=== PATIENT | male | born 1955 | race Caucasian/White ===

== ENCOUNTER 2016-06-27 07:10 | Inpatient (IN) | payer BC, OTHER ==
[~2016-06-27] VITALS: Ht 170.2 cm; Wt 68.5 kg
--- NOTE | 2016-06-27 11:38 | NUR ---
PRE-ASSESSMENT: PRE-ASSESSMENT DONE IN INTAKE BP 137/92 P 86 T 98.7 R 18 99%. HE DENIES ALLERGIES. HE DENIES SEIZURES. MEDICATION COLLECTED. HE REPORTS BPH AND THE ONLY MED HE TAKES IS FLOMAX 0.4 MG PO Q BEDTIME. HE IS A/O X 4. HE IS AMBULATORY.
[2016-06-27] MEDS ORDERED: AMOX-430 PO (11:51)
[2016-06-27] MEDS ORDERED: RANI150T12 PO (11:51)
[2016-06-27] MEDS ORDERED: OXYM30SP NS (11:51)
[2016-06-27] MEDS ORDERED: PROP10TA10 PO (11:51)
[2016-06-27] MEDS ORDERED: TAMS-3 PO (11:51)
[2016-06-27] MEDS ORDERED: SENN-108 PO (11:51)
[2016-06-27 12:00] VITALS: BP 137/92
--- NOTE | 2016-06-27 12:40 | NUR ---
ADMISSION: A 61 Y.O. 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 HE IS A/O X 4 AND AMBULATORY. HE DENIES S/I AND H/I. SKIN WARM , DRY AND INTACT. BENIGN RAISED AREA ON BACK THAT IS NOT OPEN AND HE STATES IT IS A CYST THAT IS BENIGN. LUNG SOUNDS CLEAR THROUGHOUT. HE REPORTS USING XANAX AND KLONOPIN DAILY PO (ALTERNATES BETWEEN THE TWO.) 0.5 -1 MG DAILY FOR 7 YEARS. LAST USED XANAX 1 MG TODAY BEFORE ARRIVING AT OUR FACILITY. 300-500 MG OF OXYCONTIN DAILY FOR 7 YEARS PO. LAST USED 06/26/16 IN AM. HE STATES HIS CHILDREN ARE DISGUSTED AND HIS USE IS ALSO AFFECTING HIS RELATIONSHIP WITH HIS . HE STATES HE CANNOT STOP USING ON HIS OWN AND NEEDS HELP. PT REPORTS BEING IN A 30 DAY TREATMENT IN 1987 AT [facility] IN [place]. HE STATES HE WAS CLEAN FOR 14 YEARS AND RELAPSED 7 YEARS AGO. HE REPORTS NKA. HE REPORTS BPH AND TAKES FLOMAX AT BEDTIME. HE BROUGHT MEDS IN BUT STATES HE ONLY TAKES THE FLOMAX. HE DENIES A SEIZURE HISTORY. HE DENIES HAVING A PCP. HE LIVES WITH HIS IN [facility] AND HIS KIDS LIVE WITH HIM [employer]. COWS 6 CIWA 2 ON ADMISSION. HE REPORTS SOME BODY ACHES , ANXIETY AND CHILLS ON AND OFF. ENCOURAGED INCREASED FLUIDS. HE IS ON A KOSHER DIET AND AVOIDS MEAT. ORIENTED PT TO STAFF AND UNIT. INFORMED PT THAT NURSING IS AVAILABLE /. WILL CONTINUE TO PROVIDE SAFE AND SUPPORTIVE ENVIRONMENT.
[2016-06-27 12:57] LABS: *AMPHETAMINE, URINE NEGATIVE (NEGATIVE); *BARBITURATE, URINE NEGATIVE (NEGATIVE); *CANNABINOID, URINE NEGATIVE (NEGATIVE); *COCCAINE, URINE NEGATIVE (NEGATIVE); *OPIATE, URINE NEGATIVE (NEGATIVE); *PHENCYCLIDINE SCREEN,URINE NEGATIVE (NEGATIVE)
[2016-06-27] MEDS ORDERED: LORAZEPAM 2 MG/1 ML VIAL IM PRN (13:00)
[2016-06-27] MEDS ORDERED: BUPRENORPHINE HCL 2 MG TAB.SUBL SL PRN (13:00)
[2016-06-27] MEDS ORDERED: HYDROXYZINE PAMOATE 25 MG CAPSULE PO PRN (13:00)
[2016-06-27] MEDS ORDERED: MIRALAX 17 GM POWD.PACK PO PRN (13:00)
[2016-06-27] MEDS ORDERED: METHOCARBAMOL 750 MG TABLET PO PRN (13:00)
[2016-06-27] MEDS ORDERED: diphenhydrAMINE 50 MG CAPSULE PO PRN (13:00)
[2016-06-27] MEDS ORDERED: DIAZEPAM 10 MG TABLET PO PRN ×2 (13:00)
[2016-06-27] MEDS ORDERED: ONDANSETRON ODT 4 MG TAB.RAPDIS SL PRN (13:00)
[2016-06-27] MEDS ORDERED: DICYCLOMINE HCL 20 MG TABLET PO PRN (13:00)
[2016-06-27] MEDS ORDERED: MAGNESIUM HYDROXIDE 30 ML LIQUID UDC PO PRN (13:00)
[2016-06-27] MEDS ORDERED: MAG HYDROX/AL HYDROX/SIMETH 30 ML LIQUID UDC PO PRN (13:00)
[2016-06-27] MEDS ORDERED: ACETAMINOPHEN 325 MG TABLET PO PRN (13:00)
[2016-06-27] MEDS ORDERED: LOPERAMIDE HCL 2 MG CAPSULE PO PRN ×2 (13:00)
[2016-06-27] MEDS ORDERED: ONDANSETRON 4 MG/2 ML VIAL IM PRN (13:00)
--- NOTE | 2016-06-27 13:15 | NUR ---
PRN VALIUM 5 MG ADMINISTERED FOR S/S OF W/D WHICH INCLUDE ANXIETY,RESTLESSNESS AND SWEATS. CIWA 6. WILL MONITOR EFFECTIVENESS.
[2016-06-27] MEDS: DIAZEPAM 5 MG TABLET PO PRN (13:19)
--- NOTE | 2016-06-27 13:45 | NUR ---
PRN VALIUM EFFECTIVE. CIWA 2.
[2016-06-27 16:00] VITALS: BP 162/82
[2016-06-27] MEDS: IBUPROFEN 600 MG TABLET PO PRN ×2 (16:43→19:37)
--- NOTE | 2016-06-27 16:45 | NUR ---
PRN MOTRIN GIVEN FOR REPORTED H/A 08/11 WILL MONITOR EFFECTIVENESS.
[2016-06-27] MEDS ORDERED: PATIENT MAY USE OWN MED- MD OK PO SCH ×2 (17:00→21:00)
[2016-06-27 17:04] LABS: BASOPHILS % (AUTO) 0.4 % (0.0-2.0); EOSINOPHILS % (AUTO) 0.7 % (0.0-7.0); HEMATOCRIT 39.7 % (36.7-47.1); HEMOGLOBIN 12.8 g/dL (12.5-16.3); LYMPHOCYTES # (AUTO) 0.9 K/uL (20.0-40.0); MEAN CORPUSCULAR HEMOGLOBIN 24.2 uug (23.8-33.4); MEAN CORPUSCULAR HGB CONC 32 g/dL (32.5-36.3); MEAN CORPUSCULAR VOLUME 74.9 fL (73.0-96.2); MONOCYTES # (AUTO) 0.3 K/uL (2.0-10.0); MONOCYTES % (AUTO) 3.6 % (0.0-11.0); NEUTROPHILS # (AUTO) 5.9 K/uL (1.8-8.9); NEUTROPHILS % (AUTO) 82.3 % (38.5-71.5); PLATELET COUNT (AUTO) 222 K/uL (152-348); RED CELL DISTRIBUTION WIDTH 15.8 % (12.1-16.2); WHITE BLOOD COUNT (AUTO) 7.1 K/uL (3.6-10.2)
[2016-06-27 17:14] LABS: ETHANOL < 3 MG/DL (0-0)
[2016-06-27 17:15] LABS: HIV-1 p24 ANTIGEN NON REACTIVE (NONREACTIVE); HIV-1/2 ANTIBODY NON REACTIVE (NONREACTIVE)
--- NOTE | 2016-06-27 17:15 | NUR ---
PRN MOTRIN EFFECTIVE. PT STATES H/A 04/13.
[2016-06-27 17:17] LABS: ALANINE AMINOTRANSFERASE 38 U/L (16-63); ALBUMIN 3.6 g/dL (3.4-5.0); ALKALINE PHOSPHATASE 54 U/L (50-136); ASPARTATE AMINOTRANSFERASE 23 U/L (15-37); BILIRUBIN,TOTAL 0.3 mg/dL (0.2-1.0); CALCIUM 9.4 mg/dL (8.5-10.1); CARBON DIOXIDE 28 mmol/L (21-32); CHLORIDE 105 mmol/L (98-107); CREATININE 0.8 mg/dL (0.6-1.3); GFR 99 mL/min (>60); GLUCOSE 104 mg/dL (74-106); POTASSIUM 4.4 mmol/L (3.5-5.1); SODIUM SERUM 143 mmol/L (136-145); UREA NITROGEN, BLOOD 10 mg/dL (7-18)
[2016-06-27 17:37] LABS: BAND % (MANUAL) 2 % (0-10); HYPOCHROMASIA 1+; LYMPHOCYTES % (MANUAL) 14 % (20-40); MONOCYTES % (MANUAL) 4 % (2-10); NEUTROPHILS % (MANUAL) 80 % (42-75); OVALOCYTES FEW; PLATELET ESTIMATE ADEQUATE
--- NOTE | 2016-06-27 18:02 | NUR ---
PT REPORTS SEVERE BODY ACHES,CHILLS,SWEATS AND RESTLESSNESS. COWS 14. PRN SUBUTEX GIVEN AT 1800. WILL MONITOR EFFECTIVENESS OF MEDICATION.
--- NOTE | 2016-06-27 18:30 | NUR ---
PRN SUBUTEX EFFECTIVE. COWS 6. WILL CONTINUE TO MONITOR.
--- NOTE | 2016-06-27 18:49 | NUR ---
END OF SHIFT: PT ADMITTED TODAY FOR BZO/OPI DEPENDENCE. HE WAS FEELING SOME S/S OF W/D WHICH INCLUDED ANXIETY AND RESTLESSNESS AND H/A. PRN VALIUM 5 MG PO AND MOTRIN 600 MG PO GIVEN AND EFFECTIVE. AT 1800 PTS' COWS SCORE BECAME 14 WITH SWEATS,CHILLS,ANXIETY RUNNY NOSE ANXIETY AND SEVERE BODY ACHES. PRN SUBUTEX GIVEN AND EFFECTIVE LAST COWS 6. ENCOURAGED INCREASED FLUIDS AND REST. WILL PASS REPORT TO ONCOMING NIGHT NURSE.
--- NOTE | 2016-06-27 19:38 | NUR ---
PRN Motrin: Patient complains of back pain and generalized muscle aches. Patient rates pain 9/10. Administered PRN Motrin as ordered. Will continue to monitor.
[2016-06-27 20:00] VITALS: BP 158/102
--- NOTE | 2016-06-27 20:00 | NUR ---
Start of Shift Note: Report received from day shift nurse. Pt is a 61 yo male admitted on 06/27/16 for medically-supervised withdrawal from benzodiazepines and opiates. Pt reports using 300-500mg OxyContin, 0.5-1mg of Xanax and Klonopin daily for 7 years. Pt is to start 5-day Valium and Subutex tapers tonight. Last day shift COWS=6, CIWA=4. Pt is on a kosher vegetarian diet. Pt reports NKDA/NKFA. Pt reports med hx: BPH and GERD. Pt received in room, and reports tremor, anxiety, agitation, headache, and pain. Bed is in low position and locked, side rails up x2, call light within reach. Will continue to monitor.
[2016-06-27] MEDS: TAMSULOSIN HCL 0.4 MG CAP.SR.24H PO SCH (20:24)
[2016-06-27] MEDS: FAMOTIDINE 20 MG TABLET PO SCH (20:24)
--- NOTE | 2016-06-27 20:24 | NUR ---
PRN Benadryl: Patient complains of inability to sleep. Non-pharmacological measures not effective. Administered PRN Benadryl 50mg PO as ordered. Will continue to monitor.
[2016-06-27] MEDS: CLONIDINE HCL 0.1 MG TABLET PO PRN (20:30)
--- NOTE | 2016-06-27 20:30 | NUR ---
PRN Clonidine: Patient complains of increased anxiety. BP elevated at 158/102. Administered PRN Clonidine 0.1mg PO as ordered. Will continue to monitor.
--- NOTE | 2016-06-27 20:40 | NUR ---
PRN Motrin Reassessment: Pt states that he has reduction in pain from 9/10 to 5/10 and is now tolerable. PRN Motrin effective. Additional pain relief to be treated with scheduled Subutex at 21:00. Will continue to monitor.
[2016-06-27] MEDS ORDERED: DIAZEPAM 10 MG TABLET PO SCH (21:00)
[2016-06-27] MEDS ORDERED: BUPRENORPHINE HCL 2 MG TAB.SUBL SL SCH (21:00)
--- NOTE | 2016-06-27 21:25 | NUR ---
PRN Benadryl Reassessment: Patient reports mild drowsiness with PRN Benadryl. PRN Benadryl not effective. Will continue to monitor and administer PRN medication if patient is unable to sleep after additional non-pharmacological interventions.
--- NOTE | 2016-06-27 21:30 | NUR ---
PRN Clonidine Reassessment: Patient reports mild decrease in anxiety. BP decreased from 158/102 to 141/82. PRN Clonidine effective. Will continue to monitor.
--- NOTE | 2016-06-27 23:35 | NUR ---
PRN Vistaril: Patient complains of increased anxiety that prevents sleep. Non-pharmacological measures not effective. Administered PRN Vistaril as ordered. Will continue to monitor.
[2016-06-28] VITALS (7 sets, daily range): BP systolic 128–158; BP diastolic 69–95
[2016-06-28] MEDS: DIAZEPAM 5 MG TABLET PO PRN (01:00)
--- NOTE | 2016-06-28 01:00 | NUR ---
PRN's Valium, Robaxin, Tylenol and PRN Vistaril Reassessment: Patient noted with tremor, diaphoresis. Patient reports anxiety and agitation not relieved by PRN Vistaril. Administered PRN Valium 5mg PO as ordered according to CIWA score. Will reassess in one hour. Patient complains of myalgia and pain in lower back. Patient rates pain 9/10. Non-pharmacological measures not effective. Administered PRN Robaxin and PRN Tylenol as ordered. Will continue to monitor.
--- NOTE | 2016-06-28 02:02 | NUR ---
PRN Reassessment: Patient reports relief of myalgia and pain decreased from 9/10 to 3/10. PRN Robaxin and PRN Tylenol effective. Patient reports decrease of anxiety and agitation. CIWA decreased from 9 to 3 after PRN Valium 5mg administration. PRN Valium effective. Will continue to monitor.
[2016-06-28] MEDS: CLONIDINE HCL 0.1 MG TABLET PO PRN (04:00)
--- NOTE | 2016-06-28 04:01 | NUR ---
PRN Clonidine: Patient complains of increased anxiety. Non-pharmacological measures not effective. Administered PRN Clonidine 0.1mg PO as ordered. Will continue to monitor.
--- NOTE | 2016-06-28 05:00 | NUR ---
Clonidine Reassessment: Pt reports that the PRN Clonidine was not effective in reducing anxiety. Pt states that s/s of withdrawal are worsening. Will administer PRN Valium for CIWA 10.
--- NOTE | 2016-06-28 05:10 | NUR ---
PRN Valium 10mg: Patient complains of anxiety, agitation, sensitivity to light, headache with 6/10 pain, and diaphoresis. CIWA is 10. Administered PRN Valium 10mg PO as ordered according to CIWA score. Will reassess in one hour.
--- NOTE | 2016-06-28 06:08 | NUR ---
PRN Valium 10mg Reassessment: Pt reports decrease in anxiety, tremor, diaphoresis, agitation. CIWA decreased from 10 to 3 one hour after PRN Valium 10mg PO administration. PRN Valium 10mg effective. Will continue to monitor.
--- NOTE | 2016-06-28 07:08 | NUR ---
End of Shift Note: Pt is a 61 yo male admitted to [facility] on 06/27/16 for medically-supervised withdrawal from benzodiazepines and opiates. Pt reports med hx: BPH and GERD. Pt is on a kosher vegetarian diet. Pt reports NKDA/NKFA. Pt reports taking 300-500mg OxyContin and 0.5-1mg of Xanax and Klonopin daily for 7 years. Pt is to start day 1 of 5-day Valium and Subutex tapers. Scheduled medication regime did not effectively manage s/s of withdrawal this shift and multiple PRN medications were necessary: PRN Motrin and PRN Tylenol were given for pain, PRN Robaxin was given for myalgia, PRN Vistaril and PRN Clonidine X2 were given for anxiety, all were mildly effective. PRN Valium 5mg was given for CIWA=9, which decreased to CIWA=3. PRN Valium 10mg was given for CIWA=10, which decreased to CIWA=3. PRN Benadryl was given for inability to sleep, which was not effective. Will endorse new sleep medication order to day shift nurse. Last COWS=7, CIWA=5 at 04:00. V/S stable throughout shift, with elevated BP of 158/102 at 20:00. Total fluid intake this shift: 1125 ml; output: urine x 3 and BM x 0. Pt currently in bed and slept 3 hours this shift. Pt endorsed to day shift nurse.
--- NOTE | 2016-06-28 07:55 | NUR ---
BEGINNING OF SHIFT Patient endorsement report received from night warehouse manager nurse, all pertinent information discussed. Patient with admitting Dx: OPIATE/BZO Dependence with ongoing 5 day Valium and Subutex taper as ordered, patient currently on day 2 of taper. Patient slept for 3 hours, with last ciwa score of: 3 and last cow score of: 7 as per night warehouse manager. Patient received Prn: Motrin, Tylenol, Benadryl, Robaxin, Vistaril, clonidine, medications were effective as per night warehouse manager. Patient received awake, alert and oriented x4, educated regarding plan of care for the day and medication regimen with good verbal understanding. will continue to monitor closely. safety measures in place. call light with in reach.
[2016-06-28] MEDS ORDERED: TUBERCULIN,PURIF.PROT.DERIV. 5 TU/0.1 ML TEST ID ONE (09:00)
[2016-06-28] MEDS: DIAZEPAM 10 MG TABLET PO SCH ×4 (09:10→21:29)
[2016-06-28] MEDS: BUPRENORPHINE HCL 2 MG TAB.SUBL SL SCH ×4 (09:10→21:28)
[2016-06-28] MEDS: MULTIVITAMINS,THERAPEUTIC TABLET PO SCH (09:11)
[2016-06-28] MEDS: FAMOTIDINE 20 MG TABLET PO SCH ×2 (09:11→21:29)
[2016-06-28] MEDS ORDERED: DIAZEPAM 10 MG TABLET PO PRN ×2 (13:45)
[2016-06-28] MEDS ORDERED: DIAZEPAM 5 MG TABLET PO PRN (13:45)
--- NOTE | 2016-06-28 18:51 | NUR ---
END OF SHIFT Patient with admitting Dx: opiate/bzo dependance and continues on 5 day Subutex taper and 5 day Valium taper as ordered, well tolerated, no ASE noted, Patient encouraged adequate PO fluid intake as tolerated. 0900 patient presented with: c/o chills, bone and joint aches, tearing of the eyes, stuffy nose, fine tremors, irritable, anxiety, barely sweating and goosebump with cow score of: 12 and ciwa score of: 8. 1300 assessment patient presented with: heart rate of 89, c/o chills, mild bone and joint aches, anxiety, irritable with ciwa score of: 8 and ciwa score of: 7. 1700 assessment patient presented with: heart rate of 89, c/o chills, mild bone and joint aches, anxiety, irritable with ciwa score of: 8 and ciwa score of: 7. Detox medication effective at reducing withdrawal symptoms. Patient encouraged to attend group therapies/sessions to learn new coping skills to recent relapse, patient denies SI/HI. Administered no PRNs during shift. Patient seen and examined by Dr. kang and Dr. Niño, Dr. Niño was notified that patient unable to sleep and slept for 3 hours as per awake overnight counselor report. Patient reports received BCG vaccine and will test positive for PPD ,notified MD with new orders for CXR. Safety measures in place. call light kept with in reach. Patient endorsed to awake overnight counselor nurse, all pertinent information discussed.
--- NOTE | 2016-06-28 20:00 | NUR ---
Start of Shift Note: Report received from day shift nurse. Pt is a 61 yo male admitted on 06/27/16 for medically-supervised withdrawal from opiates and benzodiazepines. Pt reports using OxyContin 300-500mg/day, Xanax and Klonopin 0.5-1mg/day for 7 years. Pt is on day 1 of 5-day Valium and Subutex tapers. Last day shift COWS=8, CIWA=7; new orders during the day for Minipress and Trazodone. Pt reports NKDA/NKFA. Pt is on a kosher vegetarian diet. Pt reports med hx: BPH and GERD. Pt received in room, and reports tremor, anxiety, diaphoresis, restlessness, and pain. Bed is in low position and locked, side rails up x2, call light within reach. Will continue to monitor.
[2016-06-28] MEDS: TAMSULOSIN HCL 0.4 MG CAP.SR.24H PO SCH (21:28)
[2016-06-28] MEDS: PRAZOSIN HCL 1 MG CAPSULE PO SCH (21:29)
[2016-06-28] MEDS: GABAPENTIN 300 MG CAPSULE PO SCH (21:29)
[2016-06-28] MEDS: TRAZODONE 50 MG TABLET PO SCH (21:29)
[2016-06-29] VITALS: BP 121/58
--- NOTE | 2016-06-29 | NUR ---
COWS/CIWA Deferred: Ordered 00:00 COWS and CIWA assessments are deferred for sleep. No s/s of acute distress noted. All safety precautions are in place. Will continue to monitor. Addendum: 06/29/16 at 0334 by CARSON MARTINEZ RN Amended: Links added.
[2016-06-29 04:00] VITALS: BP 124/75
--- NOTE | 2016-06-29 04:00 | NUR ---
COWS/CIWA Deferred: Ordered 04:00 COWS and CIWA assessments are deferred for sleep. All safety precautions are in place. Will continue to monitor. Addendum: 06/29/16 at 0555 by CARSON MARTINEZ RN Amended: Links added.
--- NOTE | 2016-06-29 06:40 | NUR ---
End of Shift Note: Pt is a 61 yo male admitted to [facility] on 06/27/16 for medically-supervised withdrawal from opiates and benzodiazepines. Pt reports PMHx: BPH and GERD. Pt is on a kosher vegetarian diet and reports NKDA/NKFA. Pt reports taking OxyContin 300-500mg/day and Xanax and Klonopin 0.5-1mg/day for 7 years. Pt is to start day 2 of 5-day Valium and Subutex tapers. Scheduled medication regime effectively manage s/s of withdrawal this shift and no PRN medications were necessary. Last COWS=6, CIWA=3 at 20:00. V/S stable throughout shift, with elevated BP of 158/95 at 20:00. Total fluid intake this shift: 1153 ml; output: urine x 3 and BM x 0. Pt currently in bed and slept 9 hours this shift. Pt endorsed to day shift nurse.
--- NOTE | 2016-06-29 07:00 | NUR ---
Start of Shift Notes: Received patient in his room. Alert and oriented x 4. Able to make needs known. Respirations even and unlabored. No SOB noted. Skin warm and dry to touch. Abdomen soft and non-distended with (+) BS in all 4 quadrants. No complains of N/V/D or constipation noted. No complains of dysuria. Bladder non-distended. Ambulatory ad roscoe with steady gait. Patient is a 61 year old male admitted for opiate and BZO dependence who was placed on a 5-day Subutex and 5-day Valium taper as ordered. No adverse reactions noted. Has past medical hx of BPH and GERD. Educated patient on his current plan of care for the day and his medication regimen. Encouraged oral fluid intake and encouraged group participation to learn new skills to prevent relapse. Will continue to monitor closely.
[2016-06-29 08:00] VITALS: BP 126/88
[2016-06-29] MEDS: FAMOTIDINE 20 MG TABLET PO SCH ×2 (08:33→22:01)
[2016-06-29] MEDS: GABAPENTIN 300 MG CAPSULE PO SCH (08:33)
[2016-06-29] MEDS: MULTIVITAMINS,THERAPEUTIC TABLET PO SCH (08:33)
[2016-06-29] MEDS: DIAZEPAM 10 MG TABLET PO SCH ×3 (08:33→22:03)
[2016-06-29] MEDS: BUPRENORPHINE HCL 2 MG TAB.SUBL SL SCH ×3 (08:34→21:57)
[2016-06-29 12:00] VITALS: BP 132/93
--- NOTE | 2016-06-29 12:21 | NUR ---
Therapist encouraged client to attend group therapy session.
[2016-06-29 13:25] LABS: HCV AB <0.1 s/co ratio (0.0-0.9); HEPATITIS B CORE AB, IgM Negative (Negative); HEPATITIS B SURFACE AG Negative (Negative)
[2016-06-29 16:00] VITALS: BP 133/85
--- NOTE | 2016-06-29 18:50 | NUR ---
End of Shift Notes: Patient Is a 61 year old male admitted for opiate and BZO dependence who was placed on a 5-day Subutex and 5-day Valium taper as ordered. No adverse reactions noted. Has past medical hx of BPH and GERD. Prior to admission, patient was using 300 to 500 mg of Oxycontin, 0.5 to 1 mg of Xanax and 0.5-1mg of Klonopin. VS monitored closely q 4 hours. No significant abnormalities noted. Patients withdrawal symptoms were closely monitored. Initial COWS 5/CIWA 3. Patient presented with chills, hot flashes, muscle aches and pains and anxiety. Last COWS 2/CIWA 2. Per patient, Subutex and Ativan has been helping him with his withdrawal symptoms. Patient actively participates in group and therapy sessions. Safety precautions in place. All needs met and attended. Will continue to monitor closely.
[2016-06-29 20:00] VITALS: BP 143/88
--- NOTE | 2016-06-29 20:00 | NUR ---
Start of Shift Note: Report received from day shift nurse. Pt is a 61 yo male admitted on 06/27/16 for medically-supervised withdrawal from benzodiazepines and opiates. Pt reports using 300-500mg OxyContin and 0.5-1mg Xanax and Klonopin daily for 7 years. Pt is on day 3 of 5-day Valium and Subutex tapers. Last day shift COWS=2, CIWA=2 and no PRN medications were given during the day. Pt reports NKDA/NKFA. Pt is on a kosher vegetarian diet. Pt reports med hx: BPH and GERD. Pt received in room, and reports anxiety. Bed is in low position and locked, side rails up x2, call light within reach. All needs attended and met. Will continue to monitor.
[2016-06-29] MEDS: TRAZODONE 50 MG TABLET PO SCH (21:58)
[2016-06-29] MEDS: PRAZOSIN HCL 1 MG CAPSULE PO SCH (21:59)
[2016-06-29] MEDS: TAMSULOSIN HCL 0.4 MG CAP.SR.24H PO SCH (22:02)
[2016-06-30] VITALS: BP 106/49
--- NOTE | 2016-06-30 | NUR ---
COWS/CIWA Deferred: COWS and CIWA assessments are deferred for sleep. No s/s of acute distress noted. All safety precautions are in place. Will continue to monitor. Addendum: 06/30/16 at 0428 by CARSON MARTINEZ RN Amended: Links added.
[2016-06-30 04:00] VITALS: BP 123/64
--- NOTE | 2016-06-30 04:00 | NUR ---
COWS and CIWA Deferred: COWS and CIWA assessments are deferred while patient sleeps. All safety precautions are in place. Will continue to monitor. Addendum: 06/30/16 at 0447 by CARSON MARTINEZ RN Amended: Links added.
--- NOTE | 2016-06-30 07:13 | NUR ---
End of Shift Note: Pt is a 61 yo male admitted on 06/27/16 for medically-supervised withdrawal from opiates and benzodiazepines. Pt reports PMHx: BPH and GERD. Pt is on a kosher vegetarian diet. Pt reports NKDA/NKFA. Pt reports taking 300-500mg OxyContin daily and 0.5-1mg Xanax and Klonopin daily for 7 years. Pt is to start the third day of 5-day Valium and Subutex tapers. Scheduled medication regime effectively manage s/s of withdrawal this shift and no PRN medications were necessary. Last COWS=4, CIWA=2 at 20:00. V/S stable throughout shift, with elevated BP of 143/88 and elevated HR 85 x2. Total fluid intake this shift: 2355 ml; output: urine x 3 and BM x 0. Pt currently in bed and slept 7 hours this shift. Pt endorsed to day shift nurse.
--- NOTE | 2016-06-30 07:42 | NUR ---
BEGINNING OF SHIFT Patient endorsement report received from operations supervisor 2nd shift nurse, all pertinent information discussed. Patient with admitting Dx: OPIATE/BZO Dependence with ongoing 5 day Valium and Subutex taper as ordered, patient currently on day 4 of taper. Patient slept for 7 hours, with last ciwa score of: 2 and last cow score of: 4 as per operations supervisor 2nd shift. Patient received no PRNs during operations supervisor 2nd shift. Patient received awake, alert and oriented x4, educated regarding plan of care for the day and medication regimen with good verbal understanding. will continue to monitor closely. safety measures in place. call light with in reach.
[2016-06-30 08:53] VITALS: BP 131/85
[2016-06-30] MEDS: FAMOTIDINE 20 MG TABLET PO SCH ×2 (08:55→21:24)
[2016-06-30] MEDS: DIAZEPAM 5 MG TABLET PO SCH ×4 (08:55→21:24)
[2016-06-30] MEDS: MULTIVITAMINS,THERAPEUTIC TABLET PO SCH (08:55)
[2016-06-30] MEDS: GABAPENTIN 300 MG CAPSULE PO SCH ×3 (08:55→21:23)
[2016-06-30] MEDS ORDERED: BUPRENORPHINE HCL 2 MG TAB.SUBL SL SCH (09:00)
[2016-06-30 13:00] VITALS: BP 147/77
[2016-06-30] MEDS: BUPRENORPHINE HCL 2 MG TAB.SUBL SL SCH ×2 (14:48→21:24)
[2016-06-30 16:47] VITALS: BP 145/76
--- NOTE | 2016-06-30 19:12 | NUR ---
END OF SHIFT Patient with admitting Dx: opiate/bzo dependance and continues on 5 day Subutex taper and 5 day Valium taper as ordered, well tolerated, no ASE noted, currently on day 3 of taper. Patient encouraged adequate PO fluid intake as tolerated. 0900 patient presented with: heart rate of 82, mild anxiety and with cow score of: 2 and ciwa score of: 1. 1300 assessment patient presented with: mild anxiety with cow score of: 1, and ciwa score of: 1. 1700 assessment patient presented with: mild anxiety with cow score of: 1 and ciwa score of: 1. Detox medication effective at reducing withdrawal symptoms. Patient encouraged to attend group therapies/sessions to learn new coping skills to prevent relapse, noted attending and participating. patient denies SI/HI. Administered no PRNs during shift. Safety measures in place. call light kept with in reach. Patient endorsed to night supervisor nurse, all pertinent information discussed.
--- NOTE | 2016-06-30 19:14 | NUR ---
Start of shift note Received report from day shift nurse. Pt is a 61 yo male, A+Ox4, presenting to [facility] for Benzo/Opiate dependence. Pt has NKA, is on Full Code status, and on Kosher/Vegetarian diet. Pt has HX of BPH and GERD. Pt is on Fall precautions. Pt is on 5 day Subutex and Valium tapers, tolerated well. No s/s of distress noted at this time. Respirations even and unlabored. Will continue to monitor.
[2016-06-30 20:19] VITALS: BP 157/94
[2016-06-30] MEDS: TRAZODONE 50 MG TABLET PO SCH (21:24)
[2016-06-30] MEDS: TAMSULOSIN HCL 0.4 MG CAP.SR.24H PO SCH (21:24)
[2016-06-30] MEDS: PRAZOSIN HCL 1 MG CAPSULE PO SCH (21:24)
[2016-07-01] VITALS (7 sets, daily range): BP systolic 113–145; BP diastolic 67–92
--- NOTE | 2016-07-01 07:07 | NUR ---
End of shift note Pt is a 61 yo male, A+Ox4, presenting to [facility] for Benzo/Opiate dependence. Pt has NKA, is on Full Code status, and on Kosher/Vegetarian diet. Pt has HX of BPH and GERD. Pt is on Fall precautions. Pt is on 5 day Subutex and Valium tapers, tolerated well. Pt slept for a total of 7 HRS. Last COWS: 2 and Last CIWA: 2 @0400. No s/s of distress noted at this time. Respirations even and unlabored. Will endorse to day shift nurse.
--- NOTE | 2016-07-01 07:45 | NUR ---
START OF SHIFT Rcvd client in room, he is A/O x 4, he presents anxious mood, He states "I feel anxious, I am thinking too much about my future" He reports fatigue, chills. Noted skin clammy to touch. Intact raised area on back, no discomfort, no tx needed at this time. He denies N/V/D. He denies HI/SI. Client admitted for Benzo/Opiate withdrawal. he reports NKA, Full Code status, and on Kosher/Vegetarian diet. Seizure precautions. He is on 5 day Subutex and Valium tapers, tolerating well. He slept for a total of 7 HRS. Last COWS 2 / CIWA 2 @ 0400. Side rails X 2 up/padded, call light within reach, bed locked in lowest positions. Will continue with plan of care
[2016-07-01] MEDS: GABAPENTIN 300 MG CAPSULE PO SCH ×3 (08:38→22:00)
[2016-07-01] MEDS: FAMOTIDINE 20 MG TABLET PO SCH ×2 (08:38→22:33)
[2016-07-01] MEDS: MULTIVITAMINS,THERAPEUTIC TABLET PO SCH (08:38)
[2016-07-01] MEDS: BUPRENORPHINE HCL 2 MG TAB.SUBL SL SCH ×3 (08:39→22:01)
[2016-07-01] MEDS: DIAZEPAM 5 MG TABLET PO SCH ×3 (08:39→22:02)
--- NOTE | 2016-07-01 19:00 | NUR ---
END OF SHIFT: Client continues on 5 day Subutex/ 5 day Valium taper, for management of his withdrawal symptoms. He is in room, A/O X4, reports anxiety, chills, and fatigue, he denies any N/V/D. Last COWS 5/ CIWA 5. He is compliant with group therapy. Adequate intake 2236mL void x 2. Client is on seizure precautions. Side rails X 2 up/padded, call light within reach, bed locked in lowest positions. Endorsed to incoming nurse
--- NOTE | 2016-07-01 20:00 | NUR ---
START OF SHIFT NOTE RECEIVED REPORT FROM DAY SHIFT NURSE. PATIENT IS A 61 YEAR OLD MALE, ADMITTED O 06/27/16 FOR OPIATE/BENZO DEPENDENCE.PATIENT IS ON 5 DAYS SUBUTEX AND 5 DAYS VALIUM TAPER. PATIENT IS FULL CODE, KOSHER DIET (AVOID MEAT) AND NO KNOWN ALLERGY. PATIENT REPORTS PMH OF BPH. NO SEIZURE HISTORY. VS STABLE . PATIENT DID NOT RECEIVED ANY PRN MEDICATION DURING THE DAY. LAST CIWA 5 AND COWS 5. RECEIVED PATIENT SOCIALIZING WITH OTHER PATIENT . PATIENT ALERT AND ORIENTED X 4. RESPIRATION EVEN AND UNLABORED. PATIENT STATES REPORTS SWEATING BUT STATES HE'S MUCH BETTER. DENIES ANY PAIN. NO N/V. ON FALL PRECAUTION. SAFETY MEASURES IN PLACE. CALL LIGHT IN REACH. WILL CONTINUE TO MONITOR.
[2016-07-01] MEDS: TRAZODONE 50 MG TABLET PO SCH (21:57)
[2016-07-01] MEDS: TAMSULOSIN HCL 0.4 MG CAP.SR.24H PO SCH (21:57)
[2016-07-01] MEDS: PRAZOSIN HCL 1 MG CAPSULE PO SCH (22:33)
[2016-07-02] VITALS: BP 126/76
[2016-07-02 04:00] VITALS: BP 117/74
--- NOTE | 2016-07-02 07:22 | NUR ---
END OF SHIFT NOTE PATIENT REMAIN ALERT AND ORIENTED X 4. RESPIRATION EVEN AND UNLABORED. PATIENT STATES REPORTED SWEATING BUT STATES HE'S MUCH BETTER . DENIES ANY PAIN. NO N/V. PATIENT CONTINUE ON 5 DAY SUBUTEX AND 5 DAY VALIUM TAPER, TOLERATED WELL.NO ADVERSE REACTION. PATIENT COMPLIANT WITH MEDICATION AND TREATMENT PLAN.PATIENT DID NOT REQUIRE ANY PRN MEDICATION DURING SHIFT. ON FALL PRECAUTION. SAFETY MEASURES IN PLACE. CALL LIGHT IN REACH. WILL CONTINUE TO MONITOR.SLEPT 6 HOURS. FLUID INTAKE 1,355 ML. VOIDED X 1 . NO BM .LAST COWS 1 AND CIWA 1 .
[2016-07-02 08:00] VITALS: BP 124/75
[2016-07-02 08:04] LABS: THYROID STIMULATING HORMONE 1.102 mIU/mL (0.358-3.740)
--- NOTE | 2016-07-02 08:10 | NUR ---
START OF SHIFT: RECEIVED PT A/O X 4. HE REPORTS SOME INTERMITTENT MILD ANXIETY BUT STATES HE IS SURPRISINGLY FEELING WELL AND THE DETOX MEDS ARE EFFECTIVE. HE CONTINUES ON VALIUM/SUBUTEX TAPER. COWS 2 CIWA 1. HE STATES HE IS ATTENDING ACTIVITIES AND GROUPS. PT IS TALKATIVE AND EXPRESSED FEELINGS OF GRATITUDE FOR BEING HERE AND GETTING THE HELP HE STATES HE SO NEEDED. WILL CONTINUE TO MONITOR AND PROVIDE SUPPORT.
[2016-07-02] MEDS: FAMOTIDINE 20 MG TABLET PO SCH ×2 (08:47→21:56)
[2016-07-02] MEDS: MULTIVITAMINS,THERAPEUTIC TABLET PO SCH (08:47)
[2016-07-02] MEDS: GABAPENTIN 300 MG CAPSULE PO SCH ×3 (08:47→21:57)
[2016-07-02] MEDS ORDERED: BUPRENORPHINE HCL 2 MG TAB.SUBL SL SCH (09:00)
[2016-07-02] MEDS ORDERED: DIAZEPAM 5 MG TABLET PO SCH (09:00)
[2016-07-02 12:00] VITALS: BP 128/78
--- NOTE | 2016-07-02 14:33 | NUR ---
Encouraged client to attend group.
[2016-07-02 16:00] VITALS: BP 135/77
[2016-07-02] MEDS ORDERED: Ibuprofen PO (18:31)
[2016-07-02] MEDS ORDERED: HYDR-3895 PO (18:31)
[2016-07-02] MEDS ORDERED: TRAZ-144 PO (18:31)
[2016-07-02] MEDS ORDERED: TAMS-3 PO (18:31)
[2016-07-02] MEDS ORDERED: METH-33 PO (18:31)
[2016-07-02] MEDS ORDERED: DICY20TA28 PO (18:31)
[2016-07-02] MEDS ORDERED: Gabapentin PO ×2 (18:31)
--- NOTE | 2016-07-02 18:50 | NUR ---
END OF SHIFT: PT COMPLETED VALIUM / SUBUTEX TAPER. DISCHARGE PLANNING IN PROGRESS. PT STATES THE DETOX MEDS WERE EFFECTIVE AND FEELS GOOD ABOUT DISCHARGING TO TREATMENT TOMORROW. UDS NEEDS COLLECTING. WILL ENDORSE TO NIGHT NURSE. LAST COWS 1 CIWA 1. HE ATTENDS GROUP AND ACTIVITIES AND EXPRESSED ENTHUSIASM TOWARD RECOVERY. NO PRNS GIVEN ON THIS SHIFT. WILL PASS SHIFT REPORT TO ONCOMING NIGHT NURSE..
[2016-07-02 18:56] LABS: *AMPHETAMINE, URINE NEGATIVE (NEGATIVE); *BARBITURATE, URINE NEGATIVE (NEGATIVE); *CANNABINOID, URINE NEGATIVE (NEGATIVE); *COCCAINE, URINE NEGATIVE (NEGATIVE); *OPIATE, URINE NEGATIVE (NEGATIVE); *PHENCYCLIDINE SCREEN,URINE NEGATIVE (NEGATIVE)
[2016-07-02 20:00] VITALS: BP 125/78
--- NOTE | 2016-07-02 20:00 | NUR ---
START OF SHIFT NOTE PATIENT IS MEDICALLY CLEARED FOR DISCHARGE TOMORROW. PATIENT IS A 61 YEAR OLD , ADMITTED FOR OPIATE/BENZO DEPENDENCE. PATIENT WAS PLACED ON 5 DAY VALIUM TAPER AND 5 DAY SUBUTEX TAPER,COMPLETED AND TOLERATED WELL. PATIENT STATES MEDICATIONS ARE EFFECTIVE IN CONTROLLING HIS WITHDRAWAL SYMPTOMS. PATIENT STATES HE FEELS BETTER. NO N/V , DENIES ANY PAIN. SKIN INTACT. ON FALL/SEIZURE PRECAUTION. PATIENT DID NOT REQUIRE ANY PRN MEDICATION DURING THE DAY. LAST COWS 1 AND CIWA 1. SAFETY MEASURES IN PLACE. CALL LIGHT IN REACH. WILL CONTINUE TO MONITOR.
[2016-07-02] MEDS: TAMSULOSIN HCL 0.4 MG CAP.SR.24H PO SCH (21:57)
[2016-07-02] MEDS: TRAZODONE 50 MG TABLET PO SCH (21:57)
[2016-07-02] MEDS: PRAZOSIN HCL 1 MG CAPSULE PO SCH (21:57)
[2016-07-03] VITALS: BP 122/75
[2016-07-03 04:00] VITALS: BP 121/72
--- NOTE | 2016-07-03 07:15 | NUR ---
END OF SHIFT NOTE PATIENT IS MEDICALLY CLEARED FOR DISCHARGE TODAY. PATIENT WAS ADMITTED FOR OPIATE/BENZO DEPENDENCE. PATIENT WAS PLACED ON 5 DAY VALIUM TAPER AND 5 DAY SUBUTEX TAPER,COMPLETED AND TOLERATED WELL. PATIENT STATES MEDICATIONS ARE EFFECTIVE IN CONTROLLING HIS WITHDRAWAL SYMPTOMS. PATIENT STATES HE FEELS BETTER. NO N/V , DENIES ANY PAIN DURING SHIFT. PATIENT COMPLIANT WITH MEDICATIONS AND TREATMENT PLAN. PATIENT EATING AND DRINKING WELL. PATIENT DID NOT REQUIRE ANY PRN MEDICATION DURING SHIFT. SKIN INTACT. ON FALL/SEIZURE PRECAUTION. SAFETY MEASURES IN PLACE. CALL LIGHT IN REACH. WILL CONTINUE TO MONITOR. SLEPT 6 HOURS. FLUID INTAKE 1,000 ML. VOIDED X 2 . NO BM. LAST COWS 0 AND CIWA 0.
[2016-07-03 08:00] VITALS: BP 123/70
--- NOTE | 2016-07-03 08:15 | NUR ---
START OF SHIFT: RECEIVED PT A/O X 4 WITH BRIGHTER AFFECT. HIS VALIUM/SUBUTEX TAPER WAS COMPLETED YESTERDAY AND HE STATES IT WAS EFFECTIVE AND HE FEELS GRATEFUL IT WAS EFFECTIVE. COWS 1 CIWA 0 DISCHARGE PLANNING IN PROGRESS FOR LATER TODAY. MEDICATED ORDERED. HE DENIES COMPLAINTS AND STATES HE FEELS MOTIVATED TO STAY CLEAN AND SOBER. WILL CONTINUE TO MONITOR.
[2016-07-03] MEDS: GABAPENTIN 300 MG CAPSULE PO SCH (08:56)
[2016-07-03] MEDS: FAMOTIDINE 20 MG TABLET PO SCH (08:56)
[2016-07-03] MEDS: MULTIVITAMINS,THERAPEUTIC TABLET PO SCH (08:56)
[2016-07-03] MEDS ORDERED: BUPRENORPHINE HCL 2 MG TAB.SUBL SL SCH (09:00)
[2016-07-03 12:00] VITALS: BP 125/70
--- NOTE | 2016-07-03 14:40 | NUR ---
DISCHARGE: PT A/O X 4. HE DENIES S/I AND H/I. HE STATES HE IS READY TO MOVE FORWARD WITH HIS RECOVERY.BELONGINGS RETURNED. EDUCATED PT ON DISCHARGE INSTRUCTIONS AND MEDICATIONS.VS WNL. PT EXPRESSED VERBAL UNDERSTANDING OF EDUCATION. ENVIRONMENTAL HEALTH SAFETY ENGINEER ESCORTED PT TO [facility] WHERE HE WAS TRANSPORTED BY [facility] TO [facility]
[2016-07-05 22:12] LABS: *BENZODIAZEPINES Positive (.); *NORDIAZEPAM Negative (Cutoff=300); *OXAZEPAM Negative (Cutoff=300)
== END 2016-07-03 14:30 | disposition other institution (70) | DRG 895 ==
LOC: SRC 10:27
PROVIDERS: ADMIT Internal Medicine; ATTEND Internal Medicine
PROC: HZ2ZZZZ Detoxification Services for Substance Abuse Treatment (ICD-10-PCS; principal; 2016-06-27)
PROC: HZ31ZZZ Individual Counseling for Substance Abuse Treatment, Behavioral (ICD-10-PCS; 2016-06-28)
PROC: HZ41ZZZ Group Counseling for Substance Abuse Treatment, Behavioral (ICD-10-PCS; 2016-06-29)
DX: F11.23 Opioid dependence with withdrawal (principal); F13.230 Sedative, hypnotic or anxiolytic dependence with withdrawal, uncomplicated; Z81.1 Family history of alcohol abuse and dependence; Z82.0 Family history of epilepsy and other diseases of the nervous system; K21.9 Gastro-esophageal reflux disease without esophagitis; Z79.899 Other long term (current) drug therapy; G47.00 Insomnia, unspecified; N40.0 Benign prostatic hyperplasia without lower urinary tract symptoms; F17.210 Nicotine dependence, cigarettes, uncomplicated; B00.1 Herpesviral vesicular dermatitis; I15.9 Secondary hypertension, unspecified; E07.81 Sick-euthyroid syndrome; E78.2 Mixed hyperlipidemia; F14.21 Cocaine dependence, in remission
CPT/HCPCS: 36415; 70030-TC; 80307; 80346; 83735; 84443; 85025; 86580; 86592; 86705; 86803; 87340; 87806; A4663; G6040-TC; Q0163